=== PATIENT | male | born 1965 | race Two or more races ===

== ENCOUNTER 2025-08-17 20:51 | Emergency (ER) | payer MEDICAID, SELFPAY ==
[2025-08-17 20:52] VITALS: BMI 30.7
[2025-08-17 21:37] VITALS: BP 184/95; PULSE 77; RESP 20; TEMP 36.9; O2SAT 96
--- NOTE | 2025-08-17 21:38 | XR_ITS ---
Examination: CT abdomen and pelvis without contrast. Coronal 3-D reconstructions. Sagittal 2-D reconstructions. Date and time of exam:August 17, 2025, 10:52 PM Indications: Abdominal pain beginning 4 days ago CTDI: vol (mGy): 8.46 DLP: (mGycm): 512 - Technique: Axial images of the abdomen have been obtained, 3 mm slice thickness Intravenous contrast material has not been administered. Low dose protocols were performed. One or more of the following dose reduction techniques were used; automated exposure control, adjustment of the mA and/or KV according to patient size, use of iterative reconstruction technique. Findings: Liver irregular in contour with fatty infiltration Hyperdense gallbladder Suspicious for mild edema about the pancreas Spleen is not enlarged No renal or ureteral calculi, moderate renal scar formation Normal appendix No bowel obstruction Normal seminal vesicles No prostatomegaly Contracted urinary bladder Moderate osteopenia Impression: Suspect primary hepatocellular disease Recommend hepatobiliary sonography to exclude sludge versus gallstones Suspicious for mild pancreatitis, clinical correlation advised Moderate renal scar formation Normal appendix No bowel obstruction
--- NOTE | 2025-08-17 21:38 | PD.EDRME ---
Rapid Medical Screening Exam RME Arrival date/time: 08/17/25 20:51 This is a case of 59-year-old male who came into the emergency room due to abdominal pain and distention persistence of the symptoms now with nausea vomiting this patient decided to sought consult here in the emergency room Chief Complaint: Abdominal Pain Time Seen by Provider: 08/17/25 21:38 Vital signs: Vital Signs Temperature 98.4 F 08/17/25 21:37 Pulse Rate 77 08/17/25 21:37 Respiratory Rate 20 08/17/25 21:37 Blood Pressure 184/95 H 08/17/25 21:37 Pulse Oximetry (%) 96 08/17/25 21:37 Oxygen Delivery Method Room Air 08/17/25 21:37
[2025-08-17 21:59] LABS: Basophils # (Auto) 0.0 Thou/mm3 (0.0-0.2); Basophils % (Auto) 0 % (0-2.5); Eosinophils # (Auto) 0.0 Thou/mm3 (0.0-0.5); Eosinophils % (Auto) 0 % (0-10); Hematocrit 45.0 % (41.0-53.0); Hemoglobin 15.0 g/dL (13.5-16.0); Immature Granulocytes Auto 0.03 Thou/mm3 (0.00-0.00); Lymphocytes # (Auto) 1.3 Thou/mm3 (1.0-4.8); Lymphocytes % (Auto) 13 % (10-50); Mean Corpuscular HGB Conc 33.3 g/dl (31.0-37.0); Mean Corpuscular Hemoglobin 29.0 pg (25.0-35.0); Mean Corpuscular Volume 87 fL (80-100); Monocytes # (Auto) 1.1 Thou/mm3 (0.0-0.8); Monocytes % (Auto) 11 % (0-12); Neutrophils # (Auto) 7.4 Thou/mm3 (1.8-7.7); Neutrophils % (Auto) 75 % (37-80); Nucleated Red Blood Cell # 0.00 Thou/mm3 (0.00-0.00); Nucleated Red Blood Cell % 0 /100 WBC (0); Platelet Count 168 Thou/mm3 (140-440); RDW Standard Deviation 41.3 fL (35.1-43.9); Red Blood Count 5.18 Miln/mm3 (4.50-5.90); White Blood Count 9.8 Thou/mm3 (3.8-10.6)
[2025-08-17 22:16] LABS: Alanine Aminotransferase 33 U/L (10-49); Albumin, Serum 4.6 gm/dL (3.4-4.8); Albumin/Globulin Ratio 1.7 (1.2-2.2); Alkaline Phosphatase 63 U/L (46-116); Anion Gap 10 (7-16); Aspartate Amino Transferase 31 U/L (0-34); BUN/Creatinine Ratio 13 Ratio (12-20); Bilirubin,Total 1.2 mg/dL (0.3-1.2); Blood Urea Nitrogen 13 mg/dL (9-23); Calcium 10.0 mg/dL (8.3-10.6); Calcium (Corrected) 10.0 mg/dL (8.5-10.1); Carbon Dioxide 28.0 mMol/L (20.0-31.0); Chloride 98 mMol/L (98-107); Creatinine (Component) 1.0 mg/dL (0.6-1.3); Estimated Creatinine Clearance 77.3 mL/min (>60); Globulin 2.7 gm/dL (2.3-3.5); Glucose 133 mg/dL (74-106); Lipase 96 U/L (12-53); Osmolality,Calculated 274 (275-295); Potassium 4.3 mMol/L (3.4-5.1); Sodium 136 mMol/L (136-145); Total Protein 7.3 gm/dL (5.7-8.2); eGFR > 60 See Note
[2025-08-17 22:33] LABS: Collection Type, Urine Clean Catch
[2025-08-17 22:59] LABS: Amorphous Crystals,Urine Present (Absent); Bilirubin,Urine Negative (Negative); Blood,Urine Negative (Negative); Clarity,Urine Turbid (Clear/Hazy); Color,Urine Lt-Yellow (Lt Yel-Yel); Glucose, Urine Negative (Negative); Ketones,Urine 1+ (Negative); Leukocyte Esterase,Urine Negative (Negative); Nitrite,Urine Negative (Negative); PH,Urine 6.5 (5.0-7.0); Protein,Urine Trace (Neg - Trace); RBC,Urine 3 /hpf (0-3); Specific Gravity,Urine 1.027 (1.001-1.035); Squamous Epithelial Cell,Urine < 1 /hpf (0-5); Urobilinogen,Urine Negative mg/dL (0.0-1.0); WBC,Urine < 1 /hpf (0-5)
[2025-08-18 00:30] VITALS: BP 176/96; BP 191/97; PULSE 66; RESP 17; TEMP 37; O2SAT 96
[2025-08-18 01:56] VITALS: BP 176/98; PULSE 67; RESP 19; TEMP 37.2; O2SAT 96
[2025-08-18] MEDS: SODIUM CHLORIDE 0.9% 1000 ML 1,000 ML 999 ML IV (01:58)
[2025-08-18] MEDS: MORPHINE SULF INJ 4 MG/ML VIAL IVP (01:58)
[2025-08-18] MEDS: ONDANSETRON INJ 2 MG/ML INJ 2 ML 4 MG IVP (01:58)
--- NOTE | 2025-08-18 02:21 | PD.EDABDPN ---
ED Abdominal Pain RME/HPI General Chief Complaint: Abdominal Pain Stated complaint: ABDOMINAL PAIN X4 DAYS Time seen by provider: 08/17/25 21:38 Arrival date/time: 08/17/25 20:51 RME / HPI RME / HPI narrative: 08/17/25 20:51 This is a case of 59-year-old male who came into the emergency room due to abdominal pain and distention persistence of the symptoms now with nausea vomiting this patient decided to sought consult here in the emergency room DR. FERRIS MAIN ED EVALUATION: Patient reports binge alcohol consumption and recent drinking 2 days duration now notes epigastric abdominal pain. Denies fever, chills, vomiting, diarrhea and melena. PMH: Pancreatitis, Denies DM. PSH: Non-contributory. Allergies: None reported. Social: Reports binge alcohol consumption, no tobacco or illicit drug abuse. Related Data Home Medications ?Medication ?Instructions ?Recorded ?Confirmed Aspirin Ec * (ECOTRIN *) 81 mg PO QDAY ##0 08/15/17 simvastatin 20 mg tablet (Zocor) 20 mg PO QAM #0 tabs 08/15/17 Previous Rx's ?Medication ?Instructions ?Recorded Hydrocodone/Acetaminophen * (NORCO 1 tab PO Q6H PRN PAIN #30 tabs 08/16/17 10/325 *) acetaminophen 300 mg-codeine 30 mg 1 tab PO BID PRN pain #12 tabs 08/29/22 tablet hydrocodone 5 mg-acetaminophen 325 1 tab PO Q8H PRN pain #20 tabs 08/18/25 mg tablet pantoprazole 40 mg tablet,delayed 40 mg PO QDAY #30 tabs 08/18/25 release (Protonix) promethazine 12.5 mg tablet 12.5 mg PO TID PRN nausea and 08/18/25 vomiting #20 tabs Allergies Allergy/AdvReac Type Severity Reaction Status Date / Time No Known Allergies Allergy Verified 08/29/22 14:02 Review of Systems Review of Systems Systems Reviewed: All systems reviewed, normal except as documented Past Medical History Past Medical History CARDIAC: Positive Cardiac Disorders and Hypercholesterolemia GASTROINTESTINAL: Positive Pancreatitis OTHER HISTORY: Positive Blood Transfusions Social History ALCOHOL: Current ALCOHOL FREQUENCY: 3 or More Drinks per Day ED Exam Narrative Physical exam: GEN. APPEARANCE: The patient is alert awake oriented X-3 in no apparent distress c/o mild epigastric abdominal pain, lying down comfortably, does not look ill/toxic. Patient has good eye contact. Patient is cooperative. VITALS: All vitals were reviewed and the pulse ox is 95% on room air which is normal according to my interpretation. HEENT: Normocephalic, atraumatic. Pupils are equal and reactive. Oral mucosa is moist. Patent Nares NECK: Supple, nontender, no thyromegaly, no meningismus, no JVD, no step offs CHEST: Symmetrical, atraumatic, and with equal expansion , Nontender on palpation no deformity and no crepitus. CARDIOVASCULAR: Heart regular rhythm no murmur or gallop rub or extra beats. LUNGS: Clear to auscultation bilaterally with symmetrical chest rise. No laboring tachypnea or wheezing. No intercostal subcostal retraction. No rales and no rhonchi. ABDOMEN: Soft, mildly distended, slightly tender to palpation of mid-epigastric region, no gross peritoneal findings noted. There are no abnormal masses palpated. Active and normal bowel sounds. EXTREMITIES: Nontender. No edema. No cyanosis. Patient is able to move all 4 extremities well, with full ROM and good CSM. SKIN: Warm and dry, no jaundice or rashes noted. MUSCULOSKELETAL: No lubar or midline bony tenderness. There is no CVA tenderness. No paraspinal muscle spasm or tenderness. NEURO: Patient is GRUBBS x 4, Cranial nerves II through XII grossly intact. There is no focal neurologic deficits noted. GCS is 15, PNS and EDITOR SOUND appear grossly intact. PSYCHIATRIC: Patient is in normal mood and affect, cooperative, no SI or HI or hallucinations. Course Quality Measures none Orders Category Date Time Status CT abdomen pelvis wo con Stat Exams 08/17/25 21:38 Completed EKG (ED Only) Stat Exams 08/18/25 02:09 Stop Req CBC Stat Lab 08/17/25 21:51 Completed Comprehensive Metabolic Panel Stat Lab 08/17/25 21:51 Completed Lipase Stat Lab 08/17/25 21:51 Completed Urinalysis Stat Lab 08/17/25 22:23 Completed Morphine* Inj Med 08/18/25 01:46 Discontinued 4 mg IVP X1 ONE Ondansetron Inj [Zofran Inj] Med 08/18/25 02:09 Discontinued 4 mg IVP Q6HR PRN Ondansetron Inj [Zofran Inj] Med 08/18/25 01:46 Discontinued 4 mg IVP X1 ONE Sodium Chloride 0.9% 1000 ml [Ns] 1,000 ml Med 08/18/25 01:49 Discontinued IV 999 mls/hr Sodium Chloride 0.9% 1000 ml [Ns] 1,000 ml Med 08/18/25 02:07 Discontinued IV 999 mls/hr Sodium Chloride 0.9% 1000 ml [Ns] 1,000 ml Med 08/18/25 02:09 Discontinued IV 999 mls/hr cefTRIAXone/D5w 1gm IV premix [Rocephin/D5w 1gm IV Med 08/18/25 02:07 Discontinued premix] 1 gm in 50 ml IV X1 Vital Signs Vital signs: Vital Signs Temperature 98.4 F 08/17/25 21:37 Pulse Rate 77 08/17/25 21:37 Respiratory Rate 20 08/17/25 21:37 Blood Pressure 184/95 H 08/17/25 21:37 Pulse Oximetry (%) 96 08/17/25 21:37 Oxygen Delivery Method Room Air 08/17/25 21:37 Abdominal Pain MDM MDM Narrative MDM Narrative:: Scribe Attestation: Leslie Henao am scribing for and in the presence of Dr. Ferris. Provider Notation: Although this document has been carefully reviewed, there may still be some phonetic and other typographical errors. These errors are purely grammatical due to imperfections in the software program and should not be construed in any way to compromise the substance of the patient's medical care during this visit. Patient reports binge alcohol consumption and recent drinking 2 days duration now notes epigastric abdominal pain. Denies fever, chills, vomiting, diarrhea and melena. Please see PE findings. Laboratory markers demonstrate normal WBC, no anemia or thrombocytopenia. Serum chemistries essentially unremarkable, with the exception of Lipase marginally elevated at 96. UA w/o signs of infection. Patient placed on radiation monitor, IV established and hydrated to correct volume deficit. Administered low-dose narcotic analgesics/anti-emetics with reported mild to moderate relief. Likely with mild alcohol induced pancreatitis. Patient was consoled on consuming alcohol again. Considered stable for discharge after completion of fluids. Final diagnosis includes recurrent pancreatitis and alcohol abuse. Disposition, patient instructed to refrain from alcohol consumption. Precautionary instructions issued, low-dose narcotic analgesics/anti-emetics, and PPI prescribed, instructed F/U with PMD in 5-7 days and to return if symptoms worsen. Patient data External records reviewed:: [facility] previous records (Reviewed prior ED records from 08/29/22. Patient was seen for Pancreatitis.) Clinical information provided by:: patient Social determinants that could affect healthcare access:: alcohol use Patient has the following chronic illnesses:: Hypercholesterolemia, Pancreatitis How is presenting disease/condition affected by chronic disease/condition?: exacerbated by Evaluation data The following diagnostics were reviewed and interpreted by me:: lab results, radiology exam(s) and EKG tracing(s) Lab and/or radiology exams considered but not ordered:: None Interpretation Summary: RADIOLOGY Findings: Liver irregular in contour with fatty infiltration Hyperdense gallbladder Suspicious for mild edema about the pancreas Spleen is not enlarged No renal or ureteral calculi, moderate renal scar formation Normal appendix No bowel obstruction Normal seminal vesicles No prostatomegaly Contracted urinary bladder Moderate osteopenia Impression: Suspect primary hepatocellular disease Recommend hepatobiliary sonography to exclude sludge versus gallstones Suspicious for mild pancreatitis, clinical correlation advised Moderate renal scar formation Normal appendix No bowel obstruction Medications / Prescriptions Medications or Prescriptions considered but not ordered:: None Medication administrations:: Medication Administration History Discontinued Medications Sodium Chloride (Ns) 1,000 mls @ 999 mls/hr IV .Q1H1M ONE Stop: 08/18/25 02:49 Last Infusion: 08/18/25 02:25 Dose: Infused Documented By: Admin: 08/18/25 01:58 Dose: 999 mls/hr Documented By: RUI Ceftriaxone Sodium/Dextrose (Rocephin/D5w 1gm Iv Premix) 1 gm in 50 mls @ 100 mls/hr IV X1 ONE Stop: 08/18/25 02:36 Last Admin: 08/18/25 02:25 Dose: Not Given Documented By: CVL Non-Admin Reason: Cancelled by Provider Sodium Chloride (Ns) 1,000 mls @ 999 mls/hr IV .Q1H1M ONE Stop: 08/18/25 03:07 Last Admin: 08/18/25 02:25 Dose: Not Given Documented By: NADYA Non-Admin Reason: Cancelled by Provider Sodium Chloride (Ns) 1,000 mls @ 999 mls/hr IV .Q1H1M ONE Stop: 08/18/25 03:09 Last Admin: 08/18/25 02:25 Dose: Not Given Documented By: NADYA Non-Admin Reason: Cancelled by Provider Morphine Sulfate (Morphine Sulf Inj 4 Mg/Ml Vial) 4 mg IVP X1 ONE Stop: 08/18/25 01:47 Last Admin: 08/18/25 01:58 Dose: 4 mg Documented By: RUI Ondansetron HCl (Ondansetron Inj 2 Mg/Ml Inj 2 Ml) 4 mg IVP X1 ONE; Protocol Stop: 08/18/25 01:47 Last Admin: 08/18/25 01:58 Dose: 4 mg Documented By: RUI Ondansetron HCl (Ondansetron Inj 2 Mg/Ml Inj 2 Ml) 4 mg IVP Q6HR PRN PRN Reason: NAUSEA OR VOMITING Stop: 09/17/25 02:08 See above if any Consultations Consultation(s) initiated? (list below): No Diagnosis Differential diagnosis abdominal pain: abdominal pain, calculus of kidney, constipation, diverticulitis, gastroenteritis, pancreatitis and small bowel obstruction Most likely diagnosis given after review of the tests above:: Recurrent pancreatitis and alcohol abuse Admission Indicated Admission indicated?: not indicated Explain why admission is indicated or not indicated:: Patient does not meet admission criteria Admission Request Was there a request for admission?: No Disposition Plan Disposition Plan: Discharge Discharge Attestation Discharge Attestation: The patient and all family members were given an opportunity to ask questions and understood the discharge instructions. Discharge instructions specifically effects, indications for sooner follow up or return to the emergency department, and the expected course of current diagnosis. Patient condition: Stable Discharge Plan Plan Patient Disposition: HOME (Self Care) Prescriptions/Referrals Prescriptions/Med Rec: New promethazine 12.5 mg tablet 12.5 mg PO TID PRN (Reason: nausea and vomiting) Qty: 20 0RF hydrocodone-acetaminophen 5-325 mg tablet 1 tab PO Q8H MDD 3 tab PRN (Reason: pain) Qty: 20 0RF pantoprazole [Protonix] 40 mg tablet,delayed release (DR/EC) 40 mg PO QDAY Qty: 30 0RF No Action Aspirin Ec * (ECOTRIN *) 81 MG TABLET.DR 81 mg PO QDAY Qty: 0 simvastatin [Zocor] 20 MG tablet 20 mg PO QAM Qty: 0 Hydrocodone/Acetaminophen * (NORCO 10/325 *) 1 TAB tablet 1 tab PO Q6H PRN (Reason: PAIN) Qty: 30 0RF acetaminophen-codeine 300-30 mg tablet 1 tab PO BID PRN (Reason: pain) Qty: 12 0RF Referrals: Edwin Mendoza MD [Primary Care Provider, Family Practice] - In 1 week Problem List Clinical Impression: Recurrent pancreatitis, Alcohol abuse Patient/Caregiver Discharge Instructions Discharge Activity: activity as tolerated Education Materials: ED Pancreatitis Additional Instructions: Avoid alcohol consumption. Medication as directed. Follow-up with primary care doctor in 5 to 7 days return if worsening. Print Language: Portuguese Stand Alone Forms: [employer] Award Info., Patient Portal Info Letter
[2025-08-18 02:46] VITALS: BP 165/98; PULSE 67; RESP 19; O2SAT 95
== END 2025-08-18 02:47 | disposition home or self-care (01) ==
PROVIDERS: Nurse Practitioner Family; Emergency Provider Emergency Medicine; PCP Family Medicine
DX: K86.1 Other chronic pancreatitis (principal); F10.10 Alcohol abuse, uncomplicated
CPT/HCPCS: 36415; 36600; 74176; 80053; 81001; 82803; 83605; 83690; 83735; 83880; 84100; 84145; 84484; 85025; 85610; 85730; 87040; 96374; 96375; 99283; J2270; J2405; J7030